=== PATIENT | male | born 1990 | race Caucasian/White ===

== ENCOUNTER 2017-05-01 13:41 | Emergency (ER) | payer SELFPAY ==
[2017-05-01] MEDS ORDERED: TESTOSTERO100 MG/1 M IM (13:57)
[2017-05-01 14:46] LABS: HEMATOCRIT 45.2 % (42.0-52.0); HEMOGLOBIN 14.9 g/dL (13.5-18.0); MEAN CELL VOLUME 87 fl (78-100); MEAN CORPUSCULAR HEMOGLOBIN 29 pg (27-31); MEAN CORPUSCULAR HGB CONC 33 g/dL (33-37); MEAN PLATELET VOLUME 9.1 fl (7.4-10.4); PLATELET COUNT 344 K/mm3 (130-400); RED BLOOD COUNT 5.18 M/mm3 (4.20-5.60); RED CELL DISTRIBUTION WIDTH 13.3 % (11.5-14.5); WHITE BLOOD COUNT 12.9 K/mm3 (4.8-10.8)
[2017-05-01 15:01] LABS: LYMPHOCYTE 14 % (20-51); MONOCYTE 6 % (3-10); NEUTROPHILS 79 % (42-75)
[2017-05-01 15:32] LABS: ERYTHROCYTE SEDIMENTATION RATE 9 mm/hr (0-15)
[2017-05-01] MEDS ORDERED: SEPTRA DS 8001 TAB PO (15:46)
[2017-05-01 16:22] VITALS: BP 134/88
== END 2017-05-01 16:25 | disposition home or self-care (01) ==
LOC: ED 13:41
PROVIDERS: Family Medicine
DX: L03.115 Cellulitis of right lower limb (principal); F55.3 Abuse of steroids or hormones; Z86.14 Personal history of Methicillin resistant Staphylococcus aureus infection
CPT/HCPCS: J0696

== ENCOUNTER 2017-07-29 10:45 | Emergency (ER) | payer SELFPAY ==
[~2017-07-29] VITALS: Ht 180.3 cm; Wt 100.0 kg
[~2017-07-29 10:45] MED LIST: SEPTRA DS 8001 TAB PO; TESTOSTERO100 MG/1 M IM
[2017-07-29 11:38] LABS: EOS # 0.2 (0.04-0.40); EOS % 1.7 % (0.0-4.0); HEMATOCRIT 42.3 % (42.0-52.0); HEMOGLOBIN 13.3 g/dL (13.5-18.0); LYMPH# 1.7 (1.50-4.00); MEAN CELL VOLUME 79 fl (78-100); MEAN CORPUSCULAR HEMOGLOBIN 25 pg (27-31); MEAN CORPUSCULAR HGB CONC 31 g/dL (33-37); MEAN PLATELET VOLUME 8.8 fl (7.4-10.4); MONO # 0.6 (0.20-0.80); NEU # 6.4 (1.40-6.50); PLATELET COUNT 434 K/mm3 (130-400); RED BLOOD COUNT 5.34 M/mm3 (4.20-5.60); RED CELL DISTRIBUTION WIDTH 19.5 % (11.5-14.5); WHITE BLOOD COUNT 8.9 K/mm3 (4.8-10.8)
[2017-07-29 11:48] LABS: ALBUMIN 3.5 g/dL (3.5-5.0); BUN/CREATININE RATIO 11.2 (6.0-26.0); CALCIUM 9.5 mg/dL (8.4-10.2); POTASSIUM 4.7 mmol/L (3.6-5.0); TOTAL BILIRUBIN 0.4 mg/dL (0.2-1.3); TOTAL PROTEIN 7.2 g/dL (6.3-8.2)
[2017-07-29 12:44] LABS: D-DIMER 2.19 mg/L FEU (0.15-0.50)
[2017-07-29 12:52] LABS: ERYTHROCYTE SEDIMENTATION RATE 20 mm/hr (0-15)
[2017-07-29] MEDS ORDERED: ULTRAM50 M1 PO (14:23)
[2017-07-29 14:39] VITALS: BP 139/80
== END 2017-07-29 14:34 | disposition home or self-care (01) ==
LOC: ED 10:45
PROVIDERS: Physician Assistant
DX: T80.89XA Other complications following infusion, transfusion and therapeutic injection, initial encounter (principal); L76.22 Postprocedural hemorrhage of skin and subcutaneous tissue following other procedure; M79.651 Pain in right thigh; Z88.1 Allergy status to other antibiotic agents

== ENCOUNTER → 2018-07-05 | Outpatient (CLI) | payer SELFPAY ==
[~2018-07-05] MED LIST changes: +ULTRAM50 M1 PO
== END ==
LOC: LAB 13:21
DX: R30.0 Dysuria (principal); R36.9 Urethral discharge, unspecified

== ENCOUNTER 2018-08-03 19:44 | Emergency (ER) | payer SELFPAY ==
[2018-08-03 20:48] LABS: ALBUMIN 4.7 g/dL (3.5-5.0); ALT/SGPT 29 U/L (21-72); AST-SGOT 28 U/L (17-59); CALCIUM 9.9 mg/dL (8.4-10.2); CARBON DIOXIDE 31 mmol/L (22-30); GLUCOSE 85 mg/dL (75-110); POTASSIUM 4.1 mmol/L (3.6-5.0); SODIUM 141 mmol/L (137-145); TOTAL BILIRUBIN 0.4 mg/dL (0.2-1.3); TOTAL PROTEIN 7.8 g/dL (6.3-8.2)
[2018-08-03 20:52] LABS: EOS # 0.1 (0.04-0.40); HEMATOCRIT 47.8 % (42.0-52.0); HEMOGLOBIN 16.1 g/dL (13.5-18.0); LYMPH# 1.8 (1.50-4.00); MEAN CELL VOLUME 77 fl (78-100); MEAN CORPUSCULAR HEMOGLOBIN 26 pg (27-31); MEAN CORPUSCULAR HGB CONC 34 g/dL (33-37); MEAN PLATELET VOLUME 10.3 fl (7.4-10.4); MONO # 0.3 (0.20-0.80); NEU # 3.9 (1.40-6.50); PLATELET COUNT 200 K/mm3 (130-400); RED BLOOD COUNT 6.24 M/mm3 (4.20-5.60); RED CELL DISTRIBUTION WIDTH 17.4 % (11.5-14.5); WHITE BLOOD COUNT 6.1 K/mm3 (4.8-10.8)
[2018-08-03 20:57] LABS: ACETAMINOPHEN < 4 ug/mL (10-30); ALCOHOL IN-HOUSE < 10 mg/dL
[2018-08-03 21:14] LABS: PH-URINE 5.5 (5.0 - 8.0); URINE APPEARANCE CLEAR; URINE BILIRUBIN NEGATIVE (NEGATIVE); URINE BLOOD NEGATIVE (NEGATIVE); URINE COLOR YELLOW; URINE GLUCOSE NEGATIVE (NEGATIVE); URINE KETONE NEGATIVE (NEGATIVE); URINE LEUKOCYTE ESTERASE NEGATIVE (NEGATIVE); URINE MUCUS PRESENT (NOT PRESENT); URINE NITRATE NEGATIVE (NEGATIVE); URINE PROTEIN(semi-quant) NEGATIVE (NEGATIVE); URINE UROBILINOGEN NORMAL (NORMAL); URINE WBC 0-1 /hpf (0-3)
[2018-08-03 22:30] VITALS: BP 121/72
== END 2018-08-03 22:30 ==
LOC: ED 19:44
PROVIDERS: Nurse Practitioner
DX: F32.9 Major depressive disorder, single episode, unspecified (principal); F20.9 Schizophrenia, unspecified; F17.290 Nicotine dependence, other tobacco product, uncomplicated; Z88.1 Allergy status to other antibiotic agents